=== PATIENT | male | born 1985 | race Caucasian/White ===

== ENCOUNTER 2023-04-18 09:38 | Emergency (ER) | payer OTHER, BC, SELFPAY ==
[2023-04-18 09:51] VITALS: BP 96/54; PULSE 77; RESP 16; TEMP 37.2; O2SAT 97; BMI 19.8
--- NOTE | 2023-04-18 11:24 | ED.NURSE ---
Dog Bite reported to [facility].
--- NOTE | 2023-04-18 11:45 | ED.GENADULT ---
HPI - General Adult General Date Seen: 04/18/23 Chief complaint: Animal Bite Stated complaint: dog bite Time Seen by Provider: 04/18/23 11:41 Source: patient Mode of arrival: ambulatory Limitations: no limitations History of Present Illness HPI narrative: Patient is a 37-year-old male who presents for a small bite wound from a dog. 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 There are no other wounds visible. Animal is up-to-date on immunizations. Patient is not up-to-date on tetanus which was his primary reason for coming in. Related Data Home Medications Medication Instructions Recorded Confirmed sertraline 100 mg tablet mg PO 04/18/23 Previous Rx's Medication Instructions Recorded amoxicillin 875 mg-potassium 1 tab PO BID #10 tabs 04/18/23 clavulanate 125 mg tablet Allergies Allergy/AdvReac Type Severity Reaction Status Date / Time No Known Drug Allergies Allergy Verified 04/18/23 09:54 Exam Narrative: Exam Narrative: Vital signs reviewed. Blood pressure slightly low, he is a fairly small framed person. Extremities: Examination of the left hand shows linear wound about 0.5 cm long on the palm and then a slightly longer abrasion on the wrist. No deep puncture wounds. Dorsum of the hand is normal. Skin: Warm dry otherwise well perfused and intact. Const: Vital Signs, click to edit/add: Vital Signs - 24 hr 04/18/23 09:51 Temperature 99.0 F Pulse Rate [Pulse Oximeter] 77 Respiratory Rate 16 Blood Pressure [Ri ght Upper Arm] 96/54 L Pulse Oximetry 97 Oxygen Delivery Me thod Room Air Documenting provider has reviewed patient's vital signs: yes Course Course ED Course: Tetanus updated today. Wound will be cleaned and dressed. At this point not certain that he will need antibiotics for this as it is not appear to be a puncture wound. I did send a prescription for Augmentin, advised that he should have a low threshold for starting this if this wound seems to be getting inflamed or more sore. Otherwise, routine wound care, return for signs of infection that do not improve despite treatment. Vital Signs Vital signs: Initial Vital Signs Temperature 99.0 F 04/18/23 09:51 Temperature Source Temporal Artery Scan 04/18/23 09:51 Pulse Rate 77 04/18/23 09:51 Respiratory Rate 16 04/18/23 09:51 Blood Pressure 96/54 L 04/18/23 09:51 Blood Pressure Mean 68 L 04/18/23 09:51 Blood Pressure Position Sitting 04/18/23 09:51 Pulse Oximetry 97 04/18/23 09:51 Oxygen Delivery Method Room Air 04/18/23 09:51 Vital Signs Temperature 99.0 F 04/18/23 09:51 Pulse Rate 77 04/18/23 09:51 Respiratory Rate 16 04/18/23 09:51 Blood Pressure 96/54 L 04/18/23 09:51 Pulse Oximetry 97 04/18/23 09:51 Oxygen Delivery Method Room Air 04/18/23 09:51 Temperature 99.0 F 04/18/23 09:51 Pulse Rate 77 04/18/23 09:51 Respiratory Rate 16 04/18/23 09:51 Blood Pressure 96/54 L 04/18/23 09:51 Pulse Oximetry 97 04/18/23 09:51 Oxygen Delivery Method Room Air 04/18/23 09:51 Discharge Plan Discharge Clinical Impression: Dog bite Patient Disposition: Home, Self-Care Condition: Stable Instructions: Animal Bite (ED) Additional Instructions: Low threshold to start antibiotics for any redness, inflammation or increasing pain. Otherwise, recommend keeping a little ointment such as Vaseline on the wound, keep it covered for the next few days while it heals. Return for signs of infection that do not improve despite treatment. Prescriptions: New amoxicillin-pot clavulanate 875-125 mg tablet 1 tab PO BID Qty: 10 0RF No Action sertraline 100 mg tablet PO Stand Alone Forms: [facility] Info Instructions
[2023-04-18] MEDS: TETANUS/DIPHTH/PERTUSSIS 0.5 ML SYRINGE IM (11:50)
--- NOTE | 2023-04-18 11:53 | ED.NURSE ---
Police has come and gone to see patient and obtain information.
--- NOTE | 2023-04-18 12:17 | ED.NURSE ---
Wounds cleaned on L hand, bandage applied.
== END 2023-04-18 12:11 | disposition home or self-care (01) ==
LOC: ED 12:08
PROVIDERS: Emergency Provider Emergency Medicine
DX: S61.452A Open bite of left hand, initial encounter (principal); W54.0XXA Bitten by dog, initial encounter
CPT/HCPCS: 90471; 90715; 99283; 99284